=== PATIENT | male | born 1980 | race Caucasian/White ===

== ENCOUNTER 2022-02-09 14:31 | Emergency (ER) | payer OTHER ==
[2022-02-09] MEDS ORDERED: DOXYCYCLINE HY100 MG PO (18:12)
[2022-02-11 21:09] LABS: CHLAMYDIA TRACHOMATIS, NAA Negative (Negative); NEISSERIA GONORRHOEAE, NAA Negative (Negative)
== END 2022-02-09 18:47 | disposition home or self-care (01) ==
LOC: ER1 14:31
PROVIDERS: Emergency Medicine
DX: N34.2 Other urethritis (principal); F17.200 Nicotine dependence, unspecified, uncomplicated
CPT/HCPCS: 81001; 87086; 96372; 99283; J0696